=== PATIENT | female | born 1990 | race Caucasian/White ===

== ENCOUNTER 2016-12-01 08:28 | Inpatient (IN) | payer MEDICAID ==
[~2016-12-01] VITALS: Ht 162.6 cm; Wt 90.0 kg
[~2016-12-01 08:28] MED LIST: ALLEGRA180 MG PO; LEVAQUIN 5500 MG/TAB PO
[2016-12-01] MEDS ORDERED: PRENATAL PO (08:36)
[2017-08-14] MEDS ORDERED: LEXAPRO20 MG PO (22:49)
[2017-09-01 23:26] VITALS: BP 158/84; PULSE 87; TEMP 98.2
[2017-09-01 23:45] VITALS: BP 139/74; PULSE 79; TEMP 98.2
[2017-09-02] VITALS (46 sets, daily range): BP systolic 119–180; BP diastolic 62–92; PULSE 68–137; TEMP 97.2–98.6
[2017-09-02 00:21] LABS: BASO % 0.2 % (0.0-2.0); EOS # 0.2 (0.0-0.7); EOS % 1.4 % (0-4.0); GRAN # 7.9 (1.4-6.5); GRAN % 72.6 % (42.2-75.2); HEMOGLOBIN 12.5 g/dl (12.5-16.0); LYMPH # 2.1 (1.2-3.4); LYMPH % 19.7 % (20.0-51.0); MEAN CELL VOLUME 93 fl (80.0-100.0); MEAN CORPUSCULAR HEMOGLOBIN 33 pg (27.0-31.0); MEAN CORPUSCULAR HGB CONC 36 g/dl (33.0-37.0); MEAN PLATELET VOLUME 11.2 fl (7.4-10.4); MONO # 0.6 (0.1-0.6); MONO % 5.7 % (1.7-9.3); PLATELET COUNT 188 K/mm3 (130-400); RED BLOOD COUNT 3.75 M/mm3 (4.10-5.30); WHITE BLOOD COUNT 10.9 K/mm3 (4.8-10.8)
[2017-09-02 00:22] LABS: HEMATOCRIT 34.7 % (37.0-47.0)
[2017-09-02 00:23] LABS: COLLECTION METHOD CLEAN CATCH
[2017-09-02 00:29] LABS: MUCOUS Present /lpf; PH 6 (5-8); URINE APPEARANCE Hazy; URINE BACTERIA None Seen /hpf; URINE BILIRUBIN Negative (NEGATIVE); URINE BLOOD 2+ (NEGATIVE); URINE COLOR Yellow; URINE GLUCOSE Negative (NEGATIVE); URINE KETONE Negative (NEGATIVE); URINE LEUKOCYTE ESTERASE Trace (NEGATIVE); URINE PROTEIN(semi-quant) Negative (NEGATIVE); URINE RBC 20-50 /hpf; URINE UROBILINOGEN Negative (NEGATIVE)
[2017-09-02 00:31] LABS: ADJUSTED CALCIUM 9.3 mg/dL (8.4-10.2); ALBUMIN 3.7 gm/dL (3.5-5.0); BILIRUBIN,TOTAL 0.5 mg/dL (0.0-1.0); CALCIUM 9.1 mg/dL (8.4-10.2); CREATININE, serum 0.51 mg/dL (0.52-1.25); POTASSIUM 3.6 mmol/L (3.4-5.0)
[2017-09-03 00:30] VITALS: BP 135/83; PULSE 95; TEMP 97.6
[2017-09-03 04:15] VITALS: BP 151/75; PULSE 97; TEMP 97.9
[2017-09-03 05:35] VITALS: BP 128/69; PULSE 89
[2017-09-03 06:37] VITALS: BP 138/78; PULSE 72; TEMP 98.1
[2017-09-03] MEDS ORDERED: IBU800 M1 PO (10:44)
[2017-09-03] MEDS ORDERED: PERCOCET 325 MG1 TA2 PO (10:44)
[2017-09-03 15:36] VITALS: BP 134/72; PULSE 76; TEMP 97.8
[2017-09-03 19:35] VITALS: BP 114/82; PULSE 79; TEMP 98.3
[2017-09-04 08:00] VITALS: BP 141/88; PULSE 83; TEMP 97.2
== END 2017-09-04 12:15 | disposition home or self-care (01) | DRG 775 ==
LOC: COL.ER 08:28 → EDSTATUS 11:05 → LDRO 09-01 22:48 → OB 09-01 22:49 → LDR 09-01 22:49 → OB 09-02 13:35 → LDRO 09-10 11:07
PROVIDERS: Obstetrics & Gynecology
PROC: 10E0XZZ Delivery of Products of Conception, External Approach (ICD-10-PCS; principal; 2017-09-02)
PROC: 0HQ9XZZ Repair Perineum Skin, External Approach (ICD-10-PCS; 2017-09-02)
DX: O99.824 Streptococcus B carrier state complicating childbirth (principal); O69.1XX0 Labor and delivery complicated by cord around neck, with compression, not applicable or unspecified; O70.0 First degree perineal laceration during delivery; Z3A.38 38 weeks gestation of pregnancy; Z37.0 Single live birth
CPT/HCPCS: J2400; J2405; J2540; J2590; J7120

== ENCOUNTER 2016-12-01 08:31 | Emergency (ER) | payer MEDICAID ==
[~2016-12-01] VITALS: Ht 160 cm; Wt 79.5 kg
[2016-12-01 08:31] VITALS: TEMP 98.7
[2016-12-01] MEDS ORDERED: PRENATAL PO (08:36)
[2016-12-01 09:05] LABS: BASO % 0.3 % (0.0-2.0); EOS # 0.2 (0.0-0.7); EOS % 2.7 % (0-4.0); GRAN # 4.6 (1.4-6.5); GRAN % 67.1 % (42.2-75.2); HEMATOCRIT 37.9 % (37.0-47.0); HEMOGLOBIN 13.6 g/dl (12.5-16.0); LYMPH # 1.6 (1.2-3.4); MEAN CELL VOLUME 92 fl (80.0-100.0); MEAN CORPUSCULAR HEMOGLOBIN 33 pg (27.0-31.0); MEAN CORPUSCULAR HGB CONC 36 g/dl (33.0-37.0); MONO # 0.5 (0.1-0.6); MONO % 6.8 % (1.7-9.3); PLATELET COUNT 228 K/mm3 (130-400); REDCELL DISTRIBUTION WIDTH-CV 11.6 % (11.5-14.5); WHITE BLOOD COUNT 6.8 K/mm3 (4.8-10.8)
[2016-12-01 11:09] LABS: CHLAMYDIA/TRACH by PCR Female Not Detected
[2016-12-01 11:10] LABS: NEISSERIA GON by PCR Female Not Detected
[2016-12-01 12:04] VITALS: BP 138/90; PULSE 98
== END 2016-12-01 14:55 | disposition home or self-care (01) ==
LOC: COL.ER 08:31
PROVIDERS: Emergency Medicine; Physician Assistant
DX: O20.0 Threatened abortion (principal); Z3A.01 Less than 8 weeks gestation of pregnancy

== ENCOUNTER 2017-08-14 22:27 | Outpatient (CLI) | payer MEDICAID ==
[~2017-08-14] VITALS: Ht 162.6 cm; Wt 88.2 kg
[~2017-08-14 22:27] MED LIST changes: +PRENATAL PO
[2017-08-14 22:37] VITALS: BP 155/73; PULSE 80; TEMP 97.6
[2017-08-14] MEDS ORDERED: LEXAPRO20 MG PO (22:49)
[2017-08-14 23:01] VITALS: BP 121/65; BP 155/74; PULSE 78
== END 2017-08-14 23:17 | disposition home or self-care (01) ==
LOC: LDRO 22:27
DX: Z34.83 Encounter for supervision of other normal pregnancy, third trimester (principal); Z3A.36 36 weeks gestation of pregnancy